=== PATIENT | female | born 1960 ===

== ENCOUNTER 2021-12-12 08:42 | Outpatient (CLI) | payer OTHER ==
[~2021-12-12 08:42] MED LIST: ATIVAN0.5 MG PO; HYDROCHLOROTH12.5 M1 PO; MICARDIS40 MG; MICARDIS80 MG PO; ORPHENADRINE C100 GM PO; TRAMADOL HCL50 MG PO
== END 2021-12-12 08:43 | disposition home or self-care (01) ==
LOC: LAB 08:42
PROVIDERS: ATTEND Radiology Diagnostic Radiology
DX: N20.0 Calculus of kidney (principal)

== ENCOUNTER 2021-12-20 07:27 | Outpatient (CLI) | payer OTHER | END 2021-12-20 07:29 | disposition home or self-care (01) | LOC: TOM 07:27 | PROVIDERS: ATTEND Urology | DX: N20.0 Calculus of kidney (principal) ==

== ENCOUNTER 2021-12-21 08:17 | Outpatient (CLI) | payer OTHER | END 2021-12-21 08:18 | disposition home or self-care (01) | LOC: LAB 08:17 | PROVIDERS: ATTEND Urology | DX: N20.0 Calculus of kidney (principal); E11.65 Type 2 diabetes mellitus with hyperglycemia; I10 Essential (primary) hypertension; E78.5 Hyperlipidemia, unspecified ==